=== PATIENT | male | born 1980 | race Hispanic/Latino ===

== ENCOUNTER 2018-04-21 01:57 | Observation (INO) | payer OTHER ==
[~2018-04-21] VITALS: Ht 185.4 cm; Wt 84.8 kg
--- NOTE | 2018-04-21 14:01 | Operative Report ---
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 Prior endoscopic ultrasound revealed a benign-appearing cyst in fine-needle aspirate was benign. Operative/Procedure Note Note: After consent patient brought to the operating room laid supine. General anesthesia was obtained and his abdomen was prepped and draped. Skin left upper quadrant was infiltrated local anesthesia and a puncture wound made sharply. Pneumoperitoneum was then achieved through a varies needle at Cruz's point. Four, 8 mm ports were then placed in the periumbilical region in the transverse midline. The abdomen was explored and a 5 mm incision was made in the epigastric region. The Yehuda retractor was placed to retract the liver edge. Patient is placed in reverse Trendelenburg and robot docked. Instruments were placed under direct vision. The abdomen was explored. There is a very large cystic mass at the hiatus. It seemed to emanate from the lesser sac near the lesser curvature of the stomach. We began by taking down the peritoneum on the lesser sac to expose the right crura. Majority dissection was carried forth with scissor cautery and bipolar cautery. We then circumferentially dissected the crural edges on both sides to better delineate the GE junction. Eventually is able to circumferentially dissect the esophagus. This allowed us to better delineate the position of the cyst to the esophagus and stomach wall. We then circumferentially dissected the cyst. to better delineate the associations to the esophagus, a 38 Khmer bougie was placed. There appeared to be a very small piece of cyst densely adherent to the esophagus just above the GE junction. During the dissection the cyst was entered and contents evacuated. There was a very thick mucousy contents. This allowed us to better dissected the cyst wall and avoid injury to the esophagus. Eventually the entire cyst was dissected free. The cyst was placed on an Endo Catch bag and cinched up and extracted and passed off the field. The bougie was removed and OG tube replaced. During passage of the tube was noted there is a very thin membrane consisting esophageal mucosa there was exposed. The area was tested under instillation of methylene blue. There is no evidence of esophageal leak. However given the thinness of the wall I felt it prudent to cover it with an anterior fundoplication. Therefore the short gastrics were taken down with the vessel sealer. Next the crura were reapproximated with a 0 Tycron suture in a figure- of-eight fashion. Finally the fundus was wrapped anteriorly over the area of dissection and sutured to the esophagus and right crura. This was done in 4 different locations to securely anchor the fundus over the area. This concluded the operation, ports were extracted as was the liver retractor under direct vision a camera. Incisions closed with 4-0 Vicryl. Steri-Strips and sterile dressing applied. Sponge and needle counts are correct. CC: Luis NINARenita
--- NOTE | 2018-04-21 14:15 | Admission Core Measures ---
Acute Coronary Syndrome (CM) ACS Core Measures Acute Coronary Syndrome Diagnosis No Congestive Heart Failure (NEW) CHF Core Measures Congestive Heart Failure Diagnosis No Cerebrovascular Accident CVA Core Measures CVA/TIA Diagnosis No Venous Thromboembolism VTE Core Rafa (View Protocol) VTE Risk Factors Surgery No Mechanical VTE Prophylaxis d/t N/A MechProphylax Ordered No VTE Pharm Prophylaxis d/t NA PharmProphylax ordered Problem List As ranked by this Provider includes Assessment & Plan 1. Congenital gastric duplication cyst HOME MEDS Home Med List No Known Home Medications
--- NOTE | 2018-04-21 16:43 | PN- General Surgery ---
Subjective Subjective: POC pt recovering well in PACU. Pain 4/10 but tolerable. Denies nausea. No flatus. has not voiding yet Deneis CP/SOB and ERWIN Objective Vital Signs and I&Os Intake & Output 04/21 1600 04/21 0804/21 0000 04/20 1600 04/20 0804/20 0000 Intake Total Output Total Balance Patient 187 lb Weight VSS, afebrile Physical Exam: gen- NAD resp- clear cardiac- RRR abd- ND, soft, nontender. No gaurding. minimal drainage on dressings. ext- no calf tenderness Current Medications: Current Medications Sig/Dee Dee Start time Last Medication Dose Route Stop Time Status Admin Acetaminophen 650 MG Q6P PRN 04/21 1415 AC PO Cefazolin Sodium 2,000 MG ONCE 04/21 0000 NR IV 04/21 2359 Dextrose/Sodium 1,000 ML .Q10H 04/21 1415 AC Chloride IV Fentanyl Citrate 100 MCG .STK-MED ONE 04/21 0719 DC IM 04/21 0720 Heparin Sodium 5,000 UNIT Q8 04/21 2200 AC (Porcine) SC Hydromorphone HCl 2 MG .STK-MED ONE 04/21 0720 DC IM 04/21 0721 Midazolam HCl 2 MG .STK-MED ONE 04/21 0719 DC IM 04/21 0720 Morphine Sulfate 2 MG Q2P PRN 04/21 1415 AC IV Ondansetron HCl 4 MG Q6P PRN 04/21 1415 AC IV Oxycodone/ 1 TAB Q4P PRN 04/21 1415 AC Acetaminophen PO Oxycodone/ 2 TAB Q4P PRN 04/21 1415 AC Acetaminophen PO Assessment/Plan Assessment/Plan 38yo M SP Robotic assisted laparoscopic excision of esophageal duplication cyst and Partial anterior fundoplication POD0, stable in PACU. pain management NPO, to have Upper GI in AM FU AM labs dvt ppx- hsq IS Core Measures Venous Thromboembolism VTE Risk Factors Surgery No Mechanical VTE Prophylaxis d/t N/A MechProphylax Ordered No VTE Pharm Prophylaxis d/t NA PharmProphylax ordered
[2018-04-21 17:40] VITALS: BP 120/40
[2018-04-21 20:02] VITALS: BP 110/66
[2018-04-21 22:10] VITALS: BP 120/62
[2018-04-22 06:10] VITALS: BP 122/70
--- NOTE | 2018-04-22 08:25 | PN- General Surgery ---
See Addendum Subjective Subjective: Patient states he feels well, pain controlled. Reports sore throat. Reports ambulating oob and voiding. Denies passing flatus. Tolerating ice chips without nausea, vomiting, belching or difficulty swallowing. Awaiting UGI Objective Vital Signs and I&Os Vital Signs Date Time Temp Pulse Resp B/P B/P Pulse O2 O2 Flow FiO2 Mean Ox Delivery Rate 04/22 0610 98.0 73 20 122/70 96 04/21 2210 99.3 76 18 120/62 95 Room Air 04/21 2002 98.4 72 18 110/66 94 Room Air 04/21 1740 81 18 120/40 95 Room Air 04/21 1705 98.7 Intake & Output 04/22 1600 04/22 0804/22 0000 04/21 1600 04/21 0804/21 0000 Intake Total 1100 500 Output Total 600 425 Balance 500 75 Intake, IV 800 300 Intake, Oral 300 200 Output, Urine 600 425 Patient 187 lb Weight Physical Exam: Gen - resting comfortably in nad Cardiac - S1S2 noted Lungs - CTAB Abd - soft, mildly distended, hypoactive bs, 6 dressings c/d/i, nontender on exam, no rebound or guarding noted Ext - no edema or calf tenderness Current Medications: Current Medications Sig/Dee Dee Start time Last Medication Dose Route Stop Time Status Admin Acetaminophen 1,000 MG Q6P PRN 04/21 1745 04/22 N/A 1 UNIT IV 0406 Acetaminophen 650 MG Q6P PRN 04/21 1415 DC PO Cefazolin Sodium 2,000 MG ONCE 04/21 0000 DC IV 04/21 2359 Dextrose/Sodium 1,000 ML .Q10H 04/21 1415 AC 04/22 Chloride IV 0304 Heparin Sodium 5,000 UNIT Q8 04/21 2200 AC 04/22 (Porcine) SC 0534 Morphine Sulfate 2 MG Q3P PRN 04/21 1745 AC 04/21 IV 1747 Morphine Sulfate 4 MG Q3P PRN 04/21 1745 AC IV Morphine Sulfate 2 MG Q2P PRN 04/21 1415 DC IV Ondansetron HCl 4 MG Q6P PRN 04/21 1415 AC 04/21 IV 1713 Oxycodone/ 1 TAB Q4P PRN 04/21 1415 DC Acetaminophen PO Oxycodone/ 2 TAB Q4P PRN 04/21 1415 DC 07/25 Acetaminophen PO 1714 Assessment/Plan Assessment/Plan 38 M POD 1 s/p robotic excision of esophageal duplication cyst with partial anterior fundoplication, who is recovering well awaiting UGI Keep NPO, IVF Pain reigmen prn Encourage IS, ambulation F/u UGI for diet advancement Keep in observation in anticipation of d/c today Will d/w Dr. Wong Core Measures Venous Thromboembolism VTE Risk Factors Surgery No Mechanical VTE Prophylaxis d/t N/A MechProphylax Ordered No VTE Pharm Prophylaxis d/t NA PharmProphylax ordered
--- NOTE | 2018-04-22 11:23 | RADIOLOGY REPORT ---
EXAMINATION: FL UPPER GI SERIES CLINICAL INFORMATION: 38-year-old male status post resection of gastric cyst, postop day 1. Follow-up Gastrografin upper GI study is requested to exclude any possibility of leak. COMPARISON: CT of the abdomen and pelvis done on 11/30/2017 and MRI of the abdomen and pelvis done on 05/15/[address] of the abdomen and pelvis done on 05/07/2017. TECHNIQUE: A single contrast upper GI series with fluoroscopy and spot imaging was performed. The patient ingested Gastrografin (total of 30 mL) without difficulty and was evaluated in the upright and recumbent positions. FINDINGS: Swallowing: Normal. Esophagus: Normal caliber and motility. Stomach: No evidence of hiatal hernia. Gastric folds are unremarkable. Delayed gastric emptying. Specifically, no evidence of any contrast leak identified. Duodenum: Normal duodenal sweep. Other findings: None. FLUOROSCOPY TIME: 2.45 minutes NUMBER OF IMAGES: 21 sequences. IMPRESSION: No evidence of any gastric leak. Slight delayed gastric emptying.
--- NOTE | 2018-04-22 12:39 | Patient Discharge Instructions ---
Discharge Instructions General Discharge Information You were seen/treated for: Duplication cyst You had these procedures: 1. 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 Partial anterior fundoplication Watch for these problems: Increased pain, difficulty swallowing, nausea, vomiting, fever, redness, swelling or drainage from incisions Do not soak the wound: Yes No bath, but you may shower: Yes Other wound care: Keep incisions clean an dry Ok to remove band-aids in 24 hours Diet Continue normal diet: No Recommended Diet: Fundoplication diet Activity Full Activity/No Limits: No Activity Self Limited: Yes Pounds, do NOT lift more than: 10 (x 4 weeks) Other activity limits: No heavy lifting or strenous activity Acute Coronary Syndrome Inclusion Criteria At DC or during hospital stay patient has or had the following: ACS DIAGNOSIS No Discharge Core Measures Meds if any: Prescribed or Continued at Discharge Meds if any: NOT Prescribed or Continued at Discharge Congestive Heart Failure Inclusion Criteria At DC or during hospital stay patient has or had the following: CHF DIAGNOSIS No Discharge Core Measures Meds if any: Prescribed or Continued at Discharge Meds if any: NOT Prescribed or Continued at Discharge Cerebrovascular accident Inclusion Criteria At DC or during hospital stay patient has or had the following: CVA/TIA Diagnosis No Discharge Core Measures Meds if any: Prescribed or Continued at Discharge Meds if any: NOT Prescribed or Continued at Discharge Venous thromboembolism Inclusion Criteria VTE Diagnosis No VTE Type NONE VTE Confirmed by (Test) NONE Discharge Core Measures - Per Current guidelines, there needs to be overlap - treatment for the first 5 days of Warfarin therapy. - If discharged on Warfarin prior to 5 days of - overlap therapy, the patient will need to be - assessed for post discharge needs including - *Post discharge parental anticoagulation - *Warfarin and/or parental anticoagulation education - *Follow up date to check INR post discharge At least 5 days overlap therapy as Inpatient No Meds if any: Prescribed or Continued at Discharge Note: Overlap Therapy is Warfarin and Anticoagulant Meds if any: NOT Prescribed or Continued at Discharge
[2018-04-22] MEDS ORDERED: PERCOCET 5-3251 EACH PO (13:57)
[2018-04-22 14:25] VITALS: BP 104/70
--- NOTE | 2018-04-22 16:36 | Surg Short-stay <48hrs Dis Sum ---
Visit Information Visit Dates Admission Date: 04/21/18 Discharge Date: 04/22/18 Surgical Short Stay DC Summary Admission Diagnosis: esophageal duplication cyst Final Diagnosis: same Procedure(s): Robotic assisted laparoscopic resection duplication cyst with partial fundoplication. Summary/Significant Findings: none Condition at Discharge: good Discharge Disposition: home or self care Discharge instructions provided to patient/family: Yes Post discharge follow-up plan: 2 weeks as arranged. Copies to: Renita Smith APRN
== END 2018-04-22 15:06 ==
LOC: STS 01:57 → PACUH 13:20 → ENRESERV 16:00 → ENTRNSPT 16:36 → EDTRNSPTSTS 16:38 → EDTRNSPT 16:38 → 2NA 16:47 → CMPTRNSPT 16:57 → ENPENDDIS 04-22 14:03 → ENTRNSPT 04-22 14:39 → EDTRNSPTSTS 04-22 14:57 → EDTRNSPT 04-22 14:57 → 2NA 04-22 15:06 → CMPTRNSPT 04-22 15:10
DX: Q39.8 Other congenital malformations of esophagus (principal); F17.200 Nicotine dependence, unspecified, uncomplicated
CPT/HCPCS: 43289; S2900; 6030; 74240; 87086; 96372; 96375; G0378; J0131; J0690; J1644; J2405